=== PATIENT | female | born 1990 | race Caucasian/White ===

== ENCOUNTER 2017-08-25 10:20 | Emergency (ER) | payer BC ==
[~2017-08-25] VITALS: Ht 160 cm; Wt 120.7 kg
[2017-08-25 11:06] LABS: CLARITY,URINE CLEAR (CLEAR); COLOR,URINE ORANGE (YELLOW); LEUKOCYTE ESTERASE ,URINE NEGATIVE (NEGATIVE); NITRITE,URINE POSITIVE (NEGATIVE); PROTEIN,URINE DIPSTICK NEGATIVE (NEGATIVE)
[2017-08-25 11:07] LABS: BILIRUBIN,URINE NEGATIVE (NEGATIVE); KETONES,URINE NEGATIVE (NEGATIVE); PREGNANCY TEST, URINE NEGATIVE (NEGATIVE); URINE UROBILINOGEN 0.2 mg/dL (0.2 - 1)
[2017-08-25] MEDS ORDERED: CEFTRIAXONE SOD 1 GM VIAL IM ONE (11:15)
[2017-08-25] MEDS ORDERED: KETOROLAC TROMETHAMINE 60 MG/2 ML VIAL IM ONE (11:15)
[2017-08-25 11:20] LABS: BACTERIA,URINE FEW /HPF; EPITHELIAL CELLS,URINE FEW /LPF
[2017-08-25 12:36] LABS: AMPHETAMINES SCREEN,URINE NEGATIVE (NEGATIVE); BENZODIAZEPINES SCREEN,URINE NEGATIVE (NEGATIVE); PHENCYCLIDINE SCREEN,URINE NEGATIVE (NEGATIVE)
== END 2017-08-25 12:52 | disposition home or self-care (01) ==
LOC: ER 10:20
DX: R30.0 Dysuria (principal); N30.90 Cystitis, unspecified without hematuria; E28.2 Polycystic ovarian syndrome
CPT/HCPCS: 80307; 81001; 81025; 87086; 99284; J0696; J1885

== ENCOUNTER 2021-08-21 15:56 | Emergency (ER) | payer SELFPAY ==
[~2021-08-21] VITALS: Ht 160 cm; Wt 146.2 kg
[2021-08-21] MEDS ORDERED: ONDANSETRON HCL INJ 2MG/ML 2ML 2 MG/ML VIAL IV STA (16:57)
[2021-08-21] MEDS ORDERED: KETOROLAC TROMETHAMINE 30 MG/ML VIAL IV STA (16:57)
[2021-08-21] MEDS ORDERED: KETOROLAC TROMETHAMINE 30 MG/ML VIAL ONE (17:15)
[2021-08-21] MEDS ORDERED: ONDANSETRON HCL INJ 2MG/ML 2ML 2 MG/ML VIAL ONE (17:16)
[2021-08-21] MEDS ORDERED: SODIUM CHLORIDE 0.9% 1000ML 1,000 ML IV SCH (19:00)
[2021-08-21] MEDS ORDERED: ACETAMINOPHEN 325 MG TAB PO ONE (19:00)
[2021-08-21] MEDS ORDERED: PANTOPRAZOLE SO40 MG PO (19:17)
[2021-08-21] MEDS ORDERED: ONDANSETRON ODT4 MG PO (19:17)
== END 2021-08-21 19:45 | disposition home or self-care (01) ==
LOC: FSED 16:45
DX: R10.13 Epigastric pain (principal); E28.2 Polycystic ovarian syndrome
CPT/HCPCS: 74176; 76705; 80053; 80076; 81003; 81025; 85025; 96374; 96375; 99284; J1885; J2405

== ENCOUNTER 2022-08-20 14:36 | Emergency (ER) | payer SELFPAY ==
[~2022-08-20] VITALS: Ht 160 cm; Wt 146.1 kg
[~2022-08-20 14:36] MED LIST: ONDANSETRON ODT4 MG PO; PANTOPRAZOLE SO40 MG PO
[2022-08-20] MEDS ORDERED: IBUPROFEN 600 MG TAB PO STA (16:35)
[2022-08-20] MEDS ORDERED: IBUPROFEN 600 MG TAB ONE (16:59)
[2022-08-20 18:06] VITALS: O2SAT 99
== END 2022-08-20 18:06 | disposition home or self-care (01) ==
LOC: FSED 16:08
DX: S93.492A Sprain of other ligament of left ankle, initial encounter (principal); X50.1XXA Overexertion from prolonged static or awkward postures, initial encounter; Y93.01 Activity, walking, marching and hiking; Y92.480 Sidewalk as the place of occurrence of the external cause; E66.01 Morbid (severe) obesity due to excess calories; E28.2 Polycystic ovarian syndrome
CPT/HCPCS: 99284

== ENCOUNTER 2023-10-06 23:04 | Emergency (ER) | payer SELFPAY ==
[~2023-10-06] VITALS: Ht 160 cm; Wt 138.3 kg
[2023-10-06 23:19] VITALS: TEMP 98.8
[2023-10-06 23:32] LABS: BASOPHILS % 0.4 % (0.0-1.0); EOSINOPHILS # (AUTO) 0.2 (0.0-0.4); EOSINOPHILS % 1.8 % (0.0-6.0); HEMATOCRIT 40.3 % (34.2-44.1); HEMOGLOBIN 12.4 g/dL (12.0-16.0); LYMPHOCYTES # (AUTO) 3.1 (1.0-3.2); LYMPHOCYTES % 31.6 % (18.0-39.1); MEAN CORPUSCULAR HEMOGLOBIN 22.1 pg (28-32); MEAN CORPUSCULAR HGB CONC 30.8 g/dL (31-35); MONOCYTES # (AUTO) 0.5 (0.2-0.8); MONOCYTES % 5.6 % (4.4-11.3); NEUTROPHILS # (AUTO) 5.8 (2.1-6.9); NEUTROPHILS % 60.3 % (38.7-80.0); PLATELET COUNT 316 x10e3/uL (140-360); RED CELL DISTRIBUTION WIDTH 17.4 % (11.7-14.4); WHITE BLOOD COUNT 9.64 x10e3/uL (4.8-10.8)
[2023-10-06 23:53] LABS: ALANINE AMINOTRANSFERASE 20 IU/L (0-55); ALBUMIN 3.6 g/dL (3.5-5.0); ALBUMIN/GLOBULIN RATIO 0.9 (0.8-2.0); ALKALINE PHOSPHATASE 63 IU/L (40-150); ANION GAP 14.6 mmol/L (8-16); BILIRUBIN,TOTAL 0.3 mg/dL (0.2-1.2); BLOOD UREA NITROGEN 9 mg/dL (7-26); BUN/CREATININE RATIO 12 (6-25); CALCIUM 8.7 mg/dL (8.4-10.2); CARBON DIOXIDE 24 mmol/L (22-29); CHLORIDE 104 mmol/L (98-107); CREATINE KINASE 42 IU/L (29-168); CREATININE, SERUM 0.74 mg/dL (0.57-1.11); EST GLOMERULAR FILTRATION RATE 112 ML/MIN (>=60); GLUCOSE 113 mg/dL (74-118); POTASSIUM 3.6 mmol/L (3.5-5.1); SODIUM 139 mmol/L (136-145); TOTAL PROTEIN 7.6 g/dL (6.5-8.1)
[2023-10-06 23:59] LABS: TROPONIN I < 0.001 ng/mL (0-0.300)
[2023-10-07 01:29] VITALS: PULSE 76; RESP 18; O2SAT 96
== END 2023-10-07 01:30 | disposition home or self-care (01) ==
LOC: ER 23:13
DX: R07.89 Other chest pain (principal); G62.9 Polyneuropathy, unspecified
CPT/HCPCS: 36415; 70450; 71045; 80053; 82550; 83690; 84484; 85025; 93005; 99284